=== PATIENT | female | born 1930 | race Caucasian/White ===

== ENCOUNTER 2018-04-13 21:35 | Emergency (ER) | payer OTHER ==
[~2018-04-13] VITALS: Ht 154.9 cm; Wt 54.4 kg
[2018-04-13 21:37] VITALS: BP 138/86
--- NOTE | 2018-04-13 21:39 | NUR ---
PER EMS BIBA, PT STAFF STATES SHE BECAME COMBATIVE AT FACILITY. GCS 14, A/OX1 (BASELINE), HX OF DEMENTIA, NO OTHER COMPLAINTS AT THIS TIME. AMBULATED WITH STEADY GATE . DENIES N/V/D; SKIN IS PINK/WARM/DRY; AAOX4 WITH EVEN AND STEADY GAIT; LUNGS CLEAR BL; HR EVEN AND REGULAR; PT DENIES ANY FEVER, CP, SOB, OR COUGH AT THIS TIME; PATIENT STATES PAIN OF 0/10 AT THIS TIME; VSS; PATIENT POSITIONED FOR COMFORT; HOB ELEVATED; BEDRAILS UP X2; BED DOWN. ER MD MADE AWARE OF PT STATUS.
--- NOTE | 2018-04-13 21:39 | NUR ---
PT BIBA EMS TO BED 4
--- NOTE | 2018-04-13 21:45 | NUR ---
FINGER BS CHECKED 97.
--- NOTE | 2018-04-13 22:30 | NUR ---
PT RESTING IN BED, NO S/S OF RESPIRATORY DISTRESS NOTED. PT STATED SHE IS FINE .
[2018-04-13 23:02] LABS: APPEARANCE,URINE CLEAR (CLEAR); BILIRUBIN,URINE NEGATIVE (NEGATIVE); BLOOD, URINE NEGATIVE (NEGATIVE); COLOR,URINE YELLOW (YELLOW); LEUKOCYTE ESTERASE ,URINE NEGATIVE (NEGATIVE); NITRITE, URINE NEGATIVE (NEGATIVE); UGLUCOSE NEGATIVE (NEGATIVE)
[2018-04-13 23:02] LABS: BASOPHILS # (AUTO) 0.1 K/uL (0.00-0.22); EOSINOPHILS # (AUTO) 0.1 K/uL (0-0.4); EOSINOPHILS % (AUTO) 1.2 % (0.0-4.0); HEMATOCRIT 43.5 % (36-48); HEMOGLOBIN 14.2 g/dL (12.0-16.0); LYMPHOCYTES # (AUTO) 2.1 K/uL (2.5-16.5); LYMPHOCYTES % (AUTO) 20.5 % (20.5-51.1); MEAN CORPUSCULAR HEMOGLOBIN 30 pg (27-31); MEAN CORPUSCULAR HGB CONC 33 g/dL (33-37); MEAN CORPUSCULAR VOLUME 92.7 fL (80-94); MONOCYTES # (AUTO) 0.8 K/uL (0.8-1.0); MONOCYTES % (AUTO) 8.3 % (1.7-9.3); PLATELET COUNT (AUTO) 250 K/uL (140-450); RED BLOOD CELL COUNT(AUTO) 4.69 MIL/uL (4.20-5.40); RED CELL DISTRIBUTION WIDTH 13.3 % (11.6-13.7); WHITE BLOOD COUNT (AUTO) 10.1 K/uL (4.8-10.8)
[2018-04-13 23:12] LABS: ANION GAP 8.5 (8-16); CARBON DIOXIDE 30.1 mmol/L (21-32); CHLORIDE 109 mmol/L (98-107); CREATININE 0.9 mg/dL (0.6-1.3); GLUCOSE 101 mg/dL (74-106); POTASSIUM 4.6 mmol/L (3.5-5.1); SODIUM SERUM 143 mmol/L (136-145); UREA NITROGEN, BLOOD 23 mg/dL (7-18)
[2018-04-13 23:18] LABS: ALBUMIN 3.6 g/dL (3.4-5.0); ASPARTATE AMINOTRANSFERASE 14 U/L (15-37); LIPASE 269 U/L (73-393); TOTAL BILIRUBIN 0.3 mg/dL (0.0-1.0)
--- NOTE | 2018-04-13 23:38 | NUR ---
WAITING FOR DISCHARGE PAPER FROM .
--- NOTE | 2018-04-13 23:40 | NUR ---
I CALLED [facility]LL[facility] FOR PT TO BE PICKED UP-THEY CAN NOT NURSE COORDINATOR PT UNTIL 7-8 AM
--- NOTE | 2018-04-13 23:42 | NUR ---
CALLED PT STEP CHILD- LEFT V-MAIL.
--- NOTE | 2018-04-14 00:03 | NUR ---
PT HAS D/C PENDING RIDE WHICH HAS ETA OF 3 AM.
--- NOTE | 2018-04-14 01:32 | NUR ---
DARRYN HARO CALLED BACK UNABLE TO GET UBER.
--- NOTE | 2018-04-14 01:41 | NUR ---
DARRYN HARO CALLED BACK UNABLE TO GET TAXI.
--- NOTE | 2018-04-14 01:50 | NUR ---
pt sleeping at this moment. no s/s of respiratory distress noted.
--- NOTE | 2018-04-14 01:50 | NUR ---
I CALLED [facility] HARO LEFT V-MAIL WITH INFO AND COST FOR [facility] TRANSPORT.
--- NOTE | 2018-04-14 03:25 | NUR ---
pt awake, no s/s of respiratory distress noted. offered pt orange juice and apple juice, pt refused.
--- NOTE | 2018-04-14 04:15 | NUR ---
PT STILL AWAKE, OFFERED PT ORANGE JUICE, PT DRINK 50 MLS, PT STATED THAT IS GOOD ENOUGH.
--- NOTE | 2018-04-14 05:00 | NUR ---
CALLED DAPHNE COLLINS 4 TIME NO/A
--- NOTE | 2018-04-14 05:15 | NUR ---
CALLED PT ESTRELLITA NO/A
--- NOTE | 2018-04-14 06:00 | NUR ---
PT WET HERSELF WHILE SHE WAS SLEEPING, ASSISTED PT TO BATHROOM TO REMOVE HER PANTS, CLEANED PT.
--- NOTE | 2018-04-14 06:31 | NUR ---
CALLED DAPHNE COLLINS 4 TIME NO/A
[2018-04-14 06:32] VITALS: BP 123/53
--- NOTE | 2018-04-14 06:32 | NUR ---
TRANSPORTATION TEAM PRESENT TO UNIT. REPORT GIVEN. PT LEFT IN STABLE CONDITION.
== END 2018-04-14 06:32 ==
LOC: MED 21:35
DX: F03.90 Unspecified dementia, unspecified severity, without behavioral disturbance, psychotic disturbance, mood disturbance, and anxiety (principal)
CPT/HCPCS: 36415; 80053; 81003; 82948; 83690; 85025; 99284